=== PATIENT | female | born 1935 | race Caucasian/White ===

== ENCOUNTER 2018-01-09 07:00 | Day surgery (SDC) | payer OTHER ==
[~2018-01-09] VITALS: Ht 165.1 cm; Wt 61.7 kg
[~2018-01-09 07:00] MED LIST: CIPRO750 MG PO; CLONAZEPAM1 MG PO; DOCUSATE SODIU100 MG PO; HYDROXYUREA PO; LEVO-T25 MCG PO; METFORMIN HCL500 MG PO; METHYLPRED4 MG/DOSE- PO; NEURONTIN PO; PANTOPRAZOLE SO40 MG PO; PERCOCET 5/3251 TAB PO; PREDNISONE20 MG PO; SIMVASTATIN20 MG PO; THEOPHYLLINE400 MG PO; TRAMADOL HCL50 MG PO; XALATAN
[2018-01-09] MEDS ORDERED: COLACE100 MG PO (11:43)
[2018-01-09] MEDS ORDERED: PERCOCET 5-3251 EACH PO (11:43)
[2018-01-09] MEDS ORDERED: NEURONTIN800 MG PO (11:43)
[2018-01-09] MEDS ORDERED: CLONAZEPAM1 MG PO (11:43)
[2018-01-09] MEDS ORDERED: CIPROFLOXACIN750 MG PO (11:43)
== END 2018-01-10 08:00 | disposition home or self-care (01) ==
LOC: CIR.AMB 07:00 → SURG 12:30 → EDSTATUS 13:00 → PED 20:08 → O/R 20:08 → CIR.AMB 01-10 08:00 → PED 01-10 14:35
DX: M51.16 Intervertebral disc disorders with radiculopathy, lumbar region (principal); M48.061 Spinal stenosis, lumbar region without neurogenic claudication; E03.8 Other specified hypothyroidism; I10 Essential (primary) hypertension; E11.9 Type 2 diabetes mellitus without complications